=== PATIENT | female | born 1990 | race Asian ===

== ENCOUNTER 2023-10-18 13:31 | Inpatient (IN) | payer BC, SELFPAY ==
[2023-10-15 20:46] VITALS: BP 140/84
[2023-10-15 21:06] LABS: % Basophils 0.5 % (0-2); % Eosinophils 2.2 % (0-6); % Immature Granulocytes 0.3 % (0-0.5); % Lymphocytes 18.1 % (20.5-51.1); % Monocytes 5.9 % (1.7-9.3); Absolute Basophils 0.1 10^3/uL (0-0.2); Absolute Eosinophils 0.3 10^3/uL (0-0.7); Absolute Lymphocytes 2.1 10^3/uL (1.2-3.4); Absolute Monocytes 0.7 10^3/uL (0.1-0.6); Absolute Neutrophils 8.5 10^3/uL (1.4-6.5); Hematocrit 35.4 % (37.0-47.0); Hemoglobin 12.5 g/dL (12.0-16.0); Mean Corp Hgb Conc. 35.3 g/dL (33.0-37.0); Mean Corpuscular Hgb 29.9 pg (27.0-31.0); Mean Corpuscular Volume 84.7 fL (81.0-99.0); Mean Platelet Volume 10.9 fL (7.4-10.4); Nucleated Red Blood Cells % 0 %; Platelet Count 256 10^3/uL (130-400); Red Blood Cell Count 4.18 10^6/uL (4.20-5.40); Red Cell Dist. Width 12.5 % (11.5-14.5); White Blood Cell Count 11.6 10^3/uL (4.8-10.8)
[2023-10-15 21:19] LABS: ALT (SGPT) 22 U/L (0-35); AST (SGOT) 26 U/L (14-36); Albumin 4.2 g/dl (3.5-5.0); Alkaline Phosphatase 62 U/L (38-126); Blood Urea Nitrogen 9 mg/dl (7-17); Calcium 12.1 mg/dl (8.4-10.2); Carbon Dioxide 28 mmol/L (22-30); Chloride 102 mmol/L (98-107); Glucose 95 mg/dl (70-99); Potassium 3.7 mmol/L (3.5-5.1); Sodium 134 mmol/L (135-145); Total Bilirubin 0.5 mg/dl (0.2-1.3); Total Protein 7.5 g/dl (6.3-8.2); eGFR > 60.00
[2023-10-15 22:14] LABS: Urine Albumin Trace (Neg - Trace); Urine Bilirubin 2+ (Negative); Urine Character Slightly Cloudy (Clear); Urine Color Amber; Urine Glucose Negative (Negative); Urine Ketone 1+ (Negative); Urine Leukocyte 2+ (Negative); Urine Nitrite Positive (Negative); Urine Occult Blood 2+ (Negative); Urine Urobilinogen 3+ (Neg - 1+); Urine pH 6.5 (5.0-9.0)
[2023-10-15 22:37] LABS: Urine Squamous Cell >30 /LPF (Few)
[2023-10-15 22:39] LABS: Urine Calcium Oxalate Crystals Present; Urine Red Blood Cell 16-20 /HPF (0-2); Urine White Cell 26-30 /HPF (0-5)
[2023-10-15 22:40] LABS: Urine Bacteria Few (Negative); Urine Mucus Moderate
--- NOTE | 2023-10-15 22:44 | ED.GENMED ---
History of Present Illness
General
Chief Complaint: Abdominal Pain
Source: patient
Exam Limitations: none
Time Seen by Provider: 10/15/23 22:23
Travel History
Have you had any contact with someone who has COVID-19?: No
Do you have any symptoms of coronavirus? Fever > 100 degrees, chills, cough, shortness of breath, sore throat, loss of taste or smell, muscle aches, or headache?: No
History of Present Illness
History of Present Illness:
See MDM
Past History
Past History
ED Past Medical History: None
ED Past Surgical History: None
Social History
Tobacco: Non-smoker
Alcohol: None
Phy Exam
Physical Exam
Physical Exam:
See MDM
Course
Orders/Labs/Results
Orders:
Orders
10/15/23 20:59
CMP [Comprehensive Metabolic Panel] Urgent
Complete Blood Count/With Diff Urgent
HCG,SERUM [Beta HCG Quantitative] Urgent
Is this a screen?: No
10/15/23 22:03
Urinalysis Urgent
Date Specimen was Collected: 10/15/23
Time Specimen was Collected: 20:52
Urine Microscopic Urgent
Date Specimen was Collected: 10/15/23
Time Specimen was Collected: 20:52
10/15/23 22:41
CefTRIAXone [Rocephin] 1,000 mg IV NOW STA
Diphenhydramine [Benadryl] 12.5 mg IV NOW STA
Metoclopramide [Reglan] 5 mg IV NOW STA
10/15/23 22:42
US 1st Trimester Urgent
Comment:
Reason For Exam: 9 weeks , left abd pain
Abnormal Lab Results
10/15/23 10/15/23
20:59 22:03
WBC 11.6 H 10^3/uL
(4.8-10.8)
RBC 4.18 L 10^6/uL
(4.20-5.40)
Hct 35.4 L %
(37.0-47.0)
MPV 10.9 H fL
(7.4-10.4)
Absolute Neuts (auto) 8.5 H 10^3/uL
(1.4-6.5)
Absolute Monos (auto) 0.7 H 10^3/uL
(0.1-0.6)
Lymphocytes % 18.1 L %
(20.5-51.1)
Sodium 134 L mmol/L
(135-145)
Calcium 12.1 H mg/dl
(8.4-10.2)
Urine Ketones 1+ A
(Negative)
Urine Occult Blood 2+ A
(Negative)
Urine Nitrite Positive A
(Negative)
Urine Bilirubin 2+ A
(Negative)
Urine Urobilinogen 3+ A
(Neg - 1+)
Ur Leukocyte Esterase 2+ A
(Negative)
Urine RBC 16-20 A /HPF
(0-2)
Urine WBC 26-30 A /HPF
(0-5)
Urine Bacteria Few A
(Negative)
10/15/23 20:59
10/15/23 20:59
Vital Signs
Initial and Last Documented VS:
Initial Vital Signs
Temp Pulse Resp BP Pulse Ox
98.9 F 86 18 140/84 100
10/15/23 20:46 10/15/23 20:46 10/15/23 20:46 10/15/23 20:46 10/15/23 20:46
Last Documented Vital Signs
Temp Pulse Resp BP Pulse Ox
98.9 F 86 18 140/84 100
10/15/23 20:46 10/15/23 20:46 10/15/23 20:46 10/15/23 20:46 10/15/23 20:46
MDM/Problems Addressed
Differential Diagnosis Includes:
HPI and MDM Narrative:
33-year-old female presenting with persistent urinary frequency and discomfort and left flank pain. Patient is approximately 9 weeks . She is G2, P1. They state they were at an outside hospital for the same issue 1 week ago. They had an
ultrasound at that time and was told 'everything looks okay'. They finished a course of antibiotics but symptoms are persistent
On exam, she does appear comfortable but has mild left flank discomfort. There is no rash. Abdomen soft and nontender. Given the status with outpatient antibiotic failure, will start Rocephin with concern for pyelonephritis. Will
provide IV fluids. stating that patient has persistent nausea and poor appetite
Physical exam
General: Well appearing and non-toxic
HEENT: protecting airway. Mildly dry mucous membranes
Neck: appears supple
CV: No evidence of cyanosis
Resp: No accessory muscle use
Abd: Non-distended. No significant tenderness. Mild left flank tenderness
Extremities: No deformities
Neuro: alert
Psych: Normal affect
Skin: Intact
Problems Addressed including Acute and Chronic Conditions affecting care:
1. Pyelonephritis
Acuity: acute
Prognosis: unstable
Details: Patient failing outpatient antibiotics. Will start Rocephin
2. Nausea
Acuity: acute
Prognosis: stable
Details: Given her status, will avoid Zofran. Will give Reglan and Benadryl
3. Dehydration
Acuity: acute
Prognosis: stable
Details: Will give IV fluids
Differential Diagnosis (but not limited to): Pyelonephritis, UTI, hyperemesis gravidarum
Testing considered: CT abdomen pelvis but will avoid radiation given current status
Drug therapy (if applicable): OTC meds, please see d/c instruction regarding Rx drugs
Amount and/or Complexity of Data Reviewed
Clinical info obtained from: Patient and
External data reviewed: N/A
Labs I independently reviewed (but not limited to): Leukocytosis
Radiology: N/A
Pulse Ox: not hypoxic
EKG independently reviewed: N/A
Supervisor Transcribing Operators: N/A
Critical Care: N/A
Risk of Complication:
Social Determinants of health: Good social support
Discussed with other providers: Hospitalist
Escalation of Care includes Admit/Obs: After being observed in the Emergency Department, pt stable for discharge.
Occasional wrong word or 'sound a like' substitutions may have occurred due to the inherent limitations of voice recognition software. Read the chart carefully and recognize, using context, where substitutions have occurred.
*Critical Care Note
Total Time (30-74mins, 75-104mins- exclusive of procedures): Not Applicable
ED Attending Note
-
Portions of this chart may have been created with voice recognition software.� Occasional wrong word or��sound alike� substitutions may have occurred due to the inherent limitations of voice recognition software.
Discharge Plan
Departure
Patient Disposition: Admit
Date of Disposition: 10/15/23
Time of Disposition: 22:47
Admit to: Med/Surg
Presentation/result/management discussed w/ accepting MD/DO: Hospitalist
Discharge Problem:
Pyelonephritis affecting in first trimester
Referrals:
NONE,* [Family Provider] -
Interventions
Interventions:
*Risk Screen - Suicide Last Done: 10/15/23 20:46
*Neglect/Abuse Screening Last Done: 10/15/23 20:46
Discharge Date and Time
Print Language: AMERICAN
--- NOTE | 2023-10-15 22:49 | HPS.HSE ---
Addendum entered and electronically signed by Matt Chairez MD 10/16/23 00:18:
Patient seen and examined independently. Agree with findings and assessment and plan in the PRIMARY CARE SALES REPRESENTATIVE note.
Briefly, patient is a generally healthy 33 y.o female, , 9 weeks presenting to ED for persistent nausea, vomiting and urinary symptoms. She has had hyperemesis since onset of . Found to have a UTI about 9 days ago and started
on oral abx. She finished this 2 days ago and reports one day free of symptoms of left sided abominal pain, dysuria and frequency. Symptoms returned today promting return to ED. She was found to be stable. Exam was benign without flank pain.
She is afebrile and has minimal peripheral leukocytosis. U/A is positive. Possibly resistant UTI complicated by and ucx likey uniformative now.
- obs, trial of ceftriaxone with transition to oral 3rd gen cephalosporin
- supportive care with iv fluids and antiemetics
- u/s pending, if unremarkable, no indication for ob consult, has f/u appointment in 2 days
dvt ppx with scds.
full code
Original Note:
Family Physician
-
Family Physician: * NONE
Chief Complaint
-
Nausea, vomiting, dysuria
History of Present Illness
33-year-old female complaining of left-sided abdominal pain with nausea, vomiting, dysuria x 8 days. She was seen at [facility] Monday 8 days ago due to dysuria, nausea, vomiting, hematuria she was placed on a 7-day course twice daily of
unknown antibiotic and finished yesterday 10/14/2023 but still has persistent symptoms with hematuria resolved. She has had hyperemesis since 6 weeks . She was placed on Diclegis over 1 week ago with no improvement. Her states he
has been working from home lying in bed during the week due to her symptoms. She completed course of antibiotics for UTI as outpatient had a reported ultrasound as an outpatient today. She denies fever, chills, chest pain, palpitations, shortness
breath, cough, vaginal discharge, vaginal bleeding, diarrhea. She is currently 9 weeks .
PMH osteoarthritis left knee, hyperemesis.
Medical History
Past Medical History
Past Medical History: Reports Other (UTIs, 2 para 1)
Past Surgical History: Reports Tonsilectomy
Social History
Tobacco: Non-smoker
Alcohol: None
Drug: None
Personal:
Living: With Family ()
Employment: Employed
Family History
Family History: Not pertinent
Allergies / Home Medications
Allergies reflects when Allergies were last updated in [facility].
Home Medications with original date entered in [facility]
Allergy/Medication List:
Allergies
Allergy/AdvReac Type Severity Reaction Status Date / Time
No Known Allergies Allergy Verified 10/15/23 20:52
Home Medications
No Meds [No Current Medications] 10/15/23
pt reports takes diclegis prn for nausea
Review of Systems
-
History Source: Patient and Family ( at bedside)
A 12 point ROS was completed and negative except as noted: Yes
Constitutional: Denies Fever or Fatigue
EENT: Denies Sore Throat or Runny Nose
Respiratory: Denies Cough or Trouble Breathing
Cardiac: Denies Chest Pain, Diaphoresis, Palpitations or Syncope
Abdomen/GI: Reports Abdominal Pain (Left upper abdomen), Nausea and Vomiting; Denies Diarrhea, Constipated or Bloody Stools
: Reports Dysuria; Denies Frequency, Flank Pain, Incontinence, Difficulty Voiding, Urgency or Bleeding
Musculoskeletal: Denies Joint Pain or Edema
Skin: Denies Itching or Rash
Neurological: Denies Dizzy, Headache or Weakness
Endocrine: Reports No Symptoms
Hematologic/Lymphatic: Reports No Symptoms
Psych: Reports Calm
Physical Exam
Vital Signs
Vital Signs
Temp Pulse Resp BP Pulse Ox
98.9 F 86 18 140/84 100
10/15/23 20:46 10/15/23 20:46 10/15/23 20:46 10/15/23 20:46 10/15/23 20:46
Physical Exam
General: Conversant; No Fever or Chills
HEENT: NormoCephalic, Anicteric, PERRLA, [place] Conjunctivae and No Ptosis
Respiratory: Clear; No Wheezes, Rales or Rhonchi
Cardiac: S1/S2 and Regular Rhythm; No Murmur, Rub or Gallop
Breast: Deferred by me
GI: Soft, Non Distended, Normal Bowel Sounds and Tender (Left upper quadrant)
Rectal: Deferred by Provider
Genito-urinary: No costovertebral tender
Musculoskeletal: No Clubbing, No Cyanosis and No Edema
Skin: Warm and Dry; No Rash
Neuro: AO x 3, No Motor Deficits, Nonfocal/grossly intact, Cranial Nerves Intact and No Sensory Deficits; No Slurred Speech, Facial Droop or Tremors
Psych: Calm
Laboratory Results
-
10/15/23 20:59
10/15/23 20:59
Laboratory Results
Total Bilirubin 0.5 mg/dl (0.2-1.3) 10/15/23 20:59
AST 26 U/L (14-36) 10/15/23 20:59
ALT 22 U/L (0-35) 10/15/23 20:59
Alkaline Phosphatase 62 U/L (38-126) 10/15/23 20:59
Impression/Plan
-
Impression/plan:
Observation MedSurg
#Symptomatic UTI
#History of UTIs in past
Completed course of antibiotics 7-day course twice daily unclear name finished yesterday 10/14/2023
Nausea, vomiting, dysuria x 8 days
WBC 11.6, afebrile, normotensive
-positive pyuria, follow urine culture
-IV Rocephin
-IV Zofran as needed
-IV NSS
Follow CBC, BMP
# with hyperemesis starting at 6 weeks
2 para 1 prior vaginal delivery
-Currently 9 weeks
-Follows with RADIATION PROTECTION TECHNICIAN Dr. Hernandez practice has first appointment on 10/17/2023
-Currently taking Diclegis but with no improvement in nausea vomiting
DVT prophylaxis
SCDs
Full code
[2023-10-15] MEDS: NSS 1000 IV (23:00)
[2023-10-15] MEDS: REGLAN 5 MG IV (23:00)
[2023-10-15] MEDS: BENADRYL 12.5 MG IV (23:00)
[2023-10-15] MEDS: ROCEPHIN 1000 MG IV (23:01)
[2023-10-15 23:03] VITALS: BP 140/84
[2023-10-16 01:15] VITALS: BP 120/65; BMI 24.6
[2023-10-16] MEDS: NSS 1000 IV ×3 (01:24→21:51)
--- NOTE | 2023-10-16 02:16 | PTCARENOTE ---
Pt admitted to the unit from ED. Pt ambulated self to bed with nursing staff. AAXO3. Pt reports 4 to 5/10 LUQ pain. Pt refused PRN Tylenol. Pt oriented to room with call lin in reach. Plan of care ongoing.
[2023-10-16] MEDS: TYLENOL 650 MG PO ×3 (04:50→22:10)
[2023-10-16 07:19] LABS: Hematocrit 30.2 % (37.0-47.0); Hemoglobin 10.4 g/dL (12.0-16.0); Mean Corp Hgb Conc. 34.4 g/dL (33.0-37.0); Mean Corpuscular Hgb 30.2 pg (27.0-31.0); Mean Corpuscular Volume 87.8 fL (81.0-99.0); Mean Platelet Volume 11.5 fL (7.4-10.4); Platelet Count 201 10^3/uL (130-400); Red Blood Cell Count 3.44 10^6/uL (4.20-5.40); Red Cell Dist. Width 12.4 % (11.5-14.5); White Blood Cell Count 9.8 10^3/uL (4.8-10.8)
[2023-10-16 07:46] LABS: Blood Urea Nitrogen 7 mg/dl (7-17); Calcium 10.9 mg/dl (8.4-10.2); Carbon Dioxide 23 mmol/L (22-30); Chloride 105 mmol/L (98-107); Estimated Creatinine Clearance 87 ml/min; Glucose 91 mg/dl (70-99); Magnesium 1.8 mg/dl (1.6-2.3); Sodium 134 mmol/L (135-145); eGFR > 60.00
[2023-10-16 07:56] VITALS: BP 113/70
--- NOTE | 2023-10-16 13:01 | CM ---
Patient seen bedside with spouse.
IA completed.
Patient lives with spouse 2 story home.
Independent prior to admission.
Patient does not drive.
No assistive devices, no VN.
Provided information re PCPs in the area and family requested [employer] OVERHEAD CLEANER, number provided.
PCP: None
Pharmacy: [facility].
Plan:home no needs.
[2023-10-16 15:37] VITALS: BP 126/72
--- NOTE | 2023-10-16 16:00 | W.PN.HOSP.TC ---
Today's Communication/Plan
-
Renal ultrasound
Continue ceftriaxone
Follow culture data
Consult ID
Consult OB
Assessment / Plan
Assessment / Plan
#Symptomatic UTI with concerns for left pyelonephritis clinically
#History of UTIs in past
# Hx of nephrolithiasis-was symptomatic in August with left-sided kidney stones
Completed course of antibiotics 7-day course twice daily , finished yesterday 10/14/2023. showed me bottles of her nitrofurantoin and doxycycline
Nausea, vomiting, dysuria x 8 days
WBC 11.6, afebrile, normotensive
-positive pyuria, follow urine culture
-cw IV Rocephin
-cw IV Zofran as needed
-cw IV NSS
- consult ID
- Check US renal tract to rule out kidney stones
# with hyperemesis starting at 6 weeks
2 para 1 prior vaginal delivery
-Currently 9 weeks
-Follows with DIVERSIFIED CROPS SUPERVISOR Dr. Hernandez practice has first appointment on 10/17/2023
-OB US shows subchorionic hemorrhage-pt declines vaginal bleeding.
Consult OB
DVT prophylaxis
SCDs
Discussed with at bedside
Total time spent on today's encounter was 52 minutes which included time spent in counseling the patient regarding diagnosis and treatment plan as listed above, goals of care, and symptom management. Case was discussed with nursing staff,
specialists . All labs and imaging personally reviewed by me. Remainder the time spent in detailed review of previous records, lab data, imaging, and other medical provider documentation.
Anticipated Discharge: > 48 hours
Subjective/Interval History
-
Date of Service: October 16, 2023
Patient still feeling nauseous and has ongoing left-sided flank pain.
In August to see how she had a kidney stones on the left side which was treated conservatively. She can see a urologist. Her care was in [facility]. She has prior history of kidney stones 2.
55 she was having lower urinary tract symptoms of dysuria but for a day and then she started to have increased frequency and change in color of urine. She then developed left-sided flank pain. She was feeling nauseous and she was throwing up. She
went to [facility] and got evaluated in the ED and had apparently ultrasound of the kidneys which was reported to be normal and had a urine analysis was put on nitrofurantoin and doxycycline( showed me the pictures of these abx on his
phone)
She remains symptomatic so came to the ER.
Denies any fevers currently.
Objective Data
-
Labs:
Laboratory Results
10/16/23
06:54
WBC 9.8
Hgb 10.4 L
Hct 30.2 L
Plt Count 201 D
Sodium 134 L
Potassium 4.0
Chloride 105
Carbon Dioxide 23
BUN 7
Creatinine 0.8
Glucose 91
Calcium 10.9 H
Vital Signs:
Vital Signs
Temp Pulse Resp BP Pulse Ox
97.6 F 73 16 126/72 99
10/16/23 15:37 10/16/23 15:37 10/16/23 15:37 10/16/23 15:37 10/16/23 15:37
I&O
10/15/23 10/16/23 10/17/23
06:59 06:59 06:59
Intake Total 60 / 60
Balance 60 / 60
Review of Systems
-
Constitutional: Denies Fever
EENT: Denies Sore Throat
Respiratory: Denies Cough or Trouble Breathing
Cardiac: Denies Chest Pain
Neuro: Denies Dizzy or Headache
Physical Exam
-
General: No Apparent Distress
HEENT: Moist Mucous Membranes
Respiratory: Clear to Auscultation
Cardiac: Regular Rhythm and S1/S2
GI: Soft, Nondistended, Normal Bowel Sounds and Tender (left side of abdomen)
Genito-urinary: Costovertebral Angle Tend (left side)
Neuro: AO x 3
Psych: Calm
Data Reviewed
-
Labs: Labs Reviewed by me
[2023-10-16 16:26] VITALS: BMI 24.6
[2023-10-16] MEDS: ZOFRAN 4 MG IV (17:25)
--- NOTE | 2023-10-16 17:27 | CON.ID ---
Consultation
-
Date/Time Consultation Requested: 10/16/2023 1451
Date/Time Consultation Performed: 10/16/2023 1731
Requesting Provider: Dr. Tomas
Performing Provider: Dr. Still
Reason for Consultation: Complicated urinary tract infection
Chief Complaint / Past History
History of Present Illness
Beth Lopez is a 33-year-old female being evaluated at the request of Dr. Tomas in regards to a complicated urinary tract infection. History is obtained from chart review, along with patient interview, and history obtained from the patient's
who is at the bedside. The patient was in her usual state of health until approximately 10 days ago when she developed nausea, vomiting and dysuria. After 3 days of symptomatology she presented to the ER at [facility]. An
ultrasound was reportedly done which was 'normal' and the patient was discharged on a course of antibiotics (Macrobid) and doxylamine/pyridoxine. The patient completed a 7-day course of the Macrobid, but at this point in time continues to have
ongoing left flank discomfort which was reportedly 9/10 yesterday.
Currently she reports her pain is 6/10. She is not having any current dysuria nor has had any hematuria. She denies any fevers, but is having nausea and vomiting. She notes no diarrhea. She does have a history of nephrolithiasis.
Past History
Additional Past Medical History:
Nephrolithiasis
Additional Past Surgical History:
Tonsils
Allergy History:
No Known Allergies Allergy (Verified 10/15/23 20:52)
Medications Reviewed: Yes
Current Antibiotics:
Ceftriaxone
Social History
Tobacco: Non-Smoker
Alcohol: None
Drug: None
Personal:
Living: With Family
Employment: Employed
Family History
Family History: Not Pertinent
Review of Systems
Vital Signs
Temp Pulse Resp BP Pulse Ox
97.6 F 73 16 126/72 99
10/16/23 15:37 10/16/23 15:37 10/16/23 15:37 10/16/23 15:37 10/16/23 15:37
Physical Exam
Physical Exam
Constitutional: No Acute Distress, Comfortable and Non-toxic
Head: Normocephalic
Eyes: Pupils Equal, Pupils Round, No Conjunctival Hemorrhage and Sclera Anicteric
Oral: No Thrush and No Ulcers
Cardiovascular: Regular Rate and S1/S2; Negative S3/S4 or Murmur
Pulmonary: Clear; Negative Wheezes, Rales or Rhonchi
Gastrointestinal: Non Tender, Non Distended and Normal Bowel Sounds
Genito-Urinary: CVA Tenderness (left); Negative [place]
Extremities: Negative Edema, Cyanosis or Erythema
Skin: Warm and Dry; Negative Rash or Jaundice
Neurological: Awake, Alert and Oriented
Psychological: Calm
Lab / Diagnostic Study Results
10/16/23 06:54
10/16/23 06:54
Abs Immat Gran (auto) 0.0 10^3/uL (0-0.05) 10/15/23 20:59
Absolute Neuts (auto) 8.5 10^3/uL (1.4-6.5) H 10/15/23 20:59
Absolute Lymphs (auto) 2.1 10^3/uL (1.2-3.4) 10/15/23 20:59
Absolute Monos (auto) 0.7 10^3/uL (0.1-0.6) H 10/15/23 20:59
Absolute Basos (auto) 0.1 10^3/uL (0-0.2) 10/15/23 20:59
Immature Gran % 0.3 % (0-0.5) 10/15/23 20:59
Neutrophils % 73.0 % (42.2-75.2) 10/15/23 20:59
Lymphocytes % 18.1 % (20.5-51.1) L 10/15/23 20:59
Monocytes % 5.9 % (1.7-9.3) 10/15/23 20:59
Eosinophils % 2.2 % (0-6) 10/15/23 20:59
Basophils % 0.5 % (0-2) 10/15/23 20:59
Urine WBC 26-30 /HPF (0-5) A 10/15/23 22:03
Ur Squamous Epith Cells >30 /LPF (Few) 10/15/23 22:03
Assessment / Plan
Left flank pain
Leukocytosis
Suspected left pyelonephritis versus left hydronephrosis
9 weeks
Recommendations:
Continue with ceftriaxone.
Await renal ultrasound.
Await cultures.
Obtain records from [facility] ER visit
Care Review
Plan reviewed with: Physician (Hospitalist)
[2023-10-16] MEDS: SENOKOT-S 1 TABLET PO (17:31)
--- NOTE | 2023-10-16 17:34 | PTCARENOTE ---
Patient received IV Zofran for c/o nausea, also requested senna tab for c/o constipation- no bm for 2 days, today being the third. at bedside at present. No c/o pain at present.
[2023-10-16] MEDS: ROCEPHIN 1000 MG IV (22:10)
[2023-10-16] MEDS: STERILE WATER FOR INJECTION 10 ML IV (22:11)
--- NOTE | 2023-10-16 23:31 | CON.MD ---
Consultation - Medical
-
Pt seen earlier today-late entry note
33 yo LMP 08/16 (sometimes irregular cycles) EGA 8w4d by dating US 10/15/23 was admitted to hospital for nonresolving UTI/possible concern for pyelonephritis. Reports UTI sx for approx 1 wk. Was admitted due to nonresolving UTI and concern for
possible pyelo. and had scheduled appt with [facility] in [place] but has not been seen there yet. Had appt tomorrow which she plans to cancel since still in hospital. She wants to deliver at [facility] so I explained that she
should consider making appt at my office since we are the only practice delivering here. [place] practice does not deliver here.
ROS: + urinary frequency/urgency/left flank pain.+ nausea and decreased appetite. Negative for vaginal bleeding or pelvic cramping.
PMH: neg
PSH: tonsillectomy
NKDA
Meds: none
Sochx: , neg T/E/ drug use
Famhx; noncontributory
PE: VSS
NDNT
pelvic exam deferred
Pelvic US: : IUP 8w3d with subchorionic collection 2 cm x 0.3cm. Small fibroid 1.6 cm.
REnal US: mild/moderate left hydroureteronephrosis, obstructing calculus at left UPJ
A/P:
1. [id number] to establish OB care. Gave her phone # to my office. She would like to see [facility] and deliver at .
2. Subchorionic hemorrhage-no vaginal bleeding. Need to check blood type.
3. Fibroid-small and likely insignificant. Will monitor.
4. nonresolving UTI/pyelonephritis-continue with IV abx. Do not see urine culture was sent. Ordered culture from urine in lab.
5. renal calculus- mild to mod hydro from obstructing stone Left UVJ-recommend urology consult.
[2023-10-16 23:36] VITALS: BP 127/78
[2023-10-17] VITALS (12 sets, daily range): BP systolic 117–130; BP diastolic 66–88
[2023-10-17] MEDS: NSS 1000 IV (05:21)
[2023-10-17] MEDS: ZOFRAN 4 MG IV ×3 (06:06→17:46)
[2023-10-17] MEDS: TYLENOL 650 MG PO ×3 (08:08→23:08)
--- NOTE | 2023-10-17 08:45 | W.PN.URO.CBU ---
Today's Communication / Plan
-
Discussed case with Dr. Nicolas and patient/
Patient has been ill for over a week; has lost 8 pounds
She has previously passed kidney stones, but the size of this left ureteral stone makes passage unlikely
Patient has been counseled regarding the risk to her if she has surgery, and if she does not
Discussed alternatives to ureteroscopy, namely left PCN tube, which would need to remain in place until at least the 3rd trimester and which would not necessarily obviate the need for radiation
Patient and are aware of the risk of worsening infection, left ureteral injury, complication to the , spontaneous , radiation injury to baby
Written and verbal consent provided
---
Will proceed to OR today
Assessment / Plan
-
Large, obstructing left distal ureteral stone
Left renal colic
Intractable nausea with vomiting
Possible complicated UTI
Diagnosis
-
Date of Service: October 17, 2023
-
Patient Diagnosis:
Left UVJ stone
Left hydroureteronephrosis
Left renal colic
Intractable nausea
Possible complicated UTI
8 week intrauterine
Subjective
-
Feels miserable
LLQ discomfort
Nausea
Fatigue
Objective
-
Vital Signs
Temp Pulse Resp BP Pulse Ox
98.8 F 75 16 119/81 99
10/17/23 07:46 10/17/23 07:46 10/17/23 07:46 10/17/23 07:46 10/17/23 07:46
Intake and Output
10/16/23 10/17/23 10/18/23
06:59 06:59 06:59
Intake Total 60 / 60 2880 / 2880
Balance 60 / 60 2880 / 2880
Intake:
Oral fluids 60 / 60 1680 / 1680
IV fluids (Total) 1200 / 1200
Other:
Number of approximated MODERATE 1 2
amounts of urine
Laboratory Results
10/16/23 06:54
10/16/23 06:54
Review of Systems
-
Constitutional: Fatigue
Respiratory: No Symptoms
Cardiac: No Symptoms
Abdomen/GI: Nausea and Vomiting
: No Symptoms
Neurological: No Symptoms
Physical Exam
-
General - ill-appearing, no acute distress
Abdomen - soft, LLQ discomfort
Skin - warm & dry with no rash
Neuro - AOx3, no motor deficits
--- NOTE | 2023-10-17 11:05 | PTCARENOTE ---
Patient kept NPO for OR this am, did receive tylenol for c/o headache with sip of water. Report called to OR.
--- NOTE | 2023-10-17 11:31 | W.IMMPOSTOP ---
Surgical Immed Post Op Note
-
Primary Surgeon: Jairon
Assisting Surgeon: None
Pre-op Diagnosis: Left ureteral stone, left hydroureteronephrosis, left renal colic, 8 week intrauterine , intractable nause
Post-op Diagnosis: Same
Procedure Performed: Left ureteroscopic laser lithotripsy, stone extraction, stent placement (no fluoroscopy employed)
Anesthesia Type: GET
Specimen / Cultures: Stone fragments
Estimated Blood Loss: None
Complications: None
--- NOTE | 2023-10-17 11:44 | CM ---
OR today for ureteral stone.
Plan: home no needs.
--- NOTE | 2023-10-17 12:47 | W.PN.HOSP.TC ---
Today's Communication/Plan
-
Start on diet post procedure
Continue antibiotics
Follow blood culture data
Assessment / Plan
Assessment / Plan
#Symptomatic UTI with concerns for left pyelonephritis clinically
#History of UTIs in past
# Hx of nephrolithiasis-was symptomatic in August with left-sided kidney stones
# Recurrent nephrolithiasis-currently having left pelvic ureteral junction obstructing stone with hydronephrosis
Completed course of antibiotics 7-day course twice daily , finished yesterday 10/14/2023. showed me bottles of her nitrofurantoin and doxycycline
S/p ureteroscopy, lithotripsy , stone removal, and stent placement in the left ureter.
Resume diet.
Continue antibiotics
Follow urine culture data
# 8W+3d +_ 1 week per US
Small subchorionic hemorrhage
No vaginal bleeding
2 para 1 prior vaginal delivery
Appreciate OB input-follow as an outpatient
DVT prophylaxis
SCDs
Discussed with this morning
[facility] today post procedure
Anticipated Discharge: 24 - 48 hours
Subjective/Interval History
-
Date of Service: October 17, 2023
Seen in PACU
S/p ureteroscopy , lithotripsy of the stone and left ureteral stent placement.
Feels the left flank pain is better. Feeling little nauseous but no vomiting. No fever or chills.
No vaginal bleeding.
Objective Data
-
Vital Signs:
Vital Signs
Temp Pulse Resp BP Pulse Ox
97.0 F 60 11 130/88 100
10/17/23 11:55 10/17/23 12:15 10/17/23 12:15 10/17/23 12:15 10/17/23 12:15
I&O
10/16/23 10/17/23 10/18/23
06:59 06:59 06:59
Intake Total 60 / 60 2880 / 2880 200 / 200
Balance 2880 / 2880 200 / 200
Review of Systems
-
Constitutional: Denies Fever
EENT: Denies Sore Throat
Respiratory: Denies Trouble Breathing
Cardiac: Denies Chest Pain
Physical Exam
-
General: No Apparent Distress
HEENT: Moist Mucous Membranes
Respiratory: Clear to Auscultation
Cardiac: Regular Rhythm and S1/S2
GI: Soft and Nontender
Genito-urinary: No Costovertebral Tender
Neuro: AO x 3
Psych: Calm
Data Reviewed
-
Labs: Labs Reviewed by me
--- NOTE | 2023-10-17 12:49 | PTCARENOTE ---
Received patient from PACU in bed; Patient oriented to room and unit; Patient ambulated to bathroom, voided 800mL of blood tinged urine; Call lin within reach; Bed in lowest position wheels locked; Patient spouse at bedside; Assessment ongoing
--- NOTE | 2023-10-17 14:59 | W.PN.UPDATE ---
Update Note
Progress Note Update
Pt s/p urology procedure, is resting comfortably, in room. No vaginal bleeding. Advised pt that U/S ordered to reassure pt post-procedure. Information given to to make appointment with our office for PN care upon discharge.
--- NOTE | 2023-10-17 16:39 | W.PN.ID1 ---
Date of Service
Date of Service: October 17, 2023
Today's Communication
Narrow to cefdinir for an additional 10 days.
Assessment / Plan
Left flank pain
Leukocytosis
Left pyelonephritis
Left hydronephrosis secondary to obstructive uropathy.
9 weeks
Recommendations:
Given overall improvement, narrow to oral cefdinir.
Patient S/P stone retriev
Outside records reviewed. Does not appear that the urine culture was performed at OSH.
Chief Complaint
-: UTI
Subjective / Review of Systems
Review of Systems: No Fever and No Chills
Vital Signs / Physical Exam
Vital Signs
Vital Signs
Temp Pulse Resp BP Pulse Ox
98.2 F 56 14 119/66 100
10/17/23 16:02 10/17/23 16:02 10/17/23 16:02 10/17/23 16:02 10/17/23 16:02
Physical Exam
Constitutional: No Acute Distress, Well Developed, Comfortable and Non-toxic
Eyes: Sclera Anicteric
Cardiovascular: S1/S2; Negative S3/S4
Pulmonary: Clear and Non Labored
Gastrointestinal: Soft and Non Distended
Objective Data
Lab Data
Lab Results
10/16/23 06:54
10/16/23 06:54
Estimated Creat Clear 87 ml/min 10/16/23 06:54
Total Bilirubin 0.5 mg/dl (0.2-1.3) 10/15/23 20:59
AST 26 U/L (14-36) 10/15/23 20:59
ALT 22 U/L (0-35) 10/15/23 20:59
Alkaline Phosphatase 62 U/L (38-126) 10/15/23 20:59
Most recent labs reviewed.
[2023-10-17] MEDS: OMNICEF 300 MG PO (19:58)
[2023-10-17] MEDS: STERILE WATER FOR INJECTION IV (21:55)
[2023-10-18 03:00] VITALS: BP 122/66
--- NOTE | 2023-10-18 05:28 | DOWNTIME ---
There was a [employer] Human Resources Clerk Downtime on 10/18/2023 from 0100 to 10/18/2023 at 0439. Downtime documentation of patient's care, including medication administrations, has been reconciled in the electronic record per guidelines. Refer to the
patient's paper chart under the miscellaneous tab to see printed paper medication records and downtime forms.
[2023-10-18 05:39] LABS: Hematocrit 28.2 % (37.0-47.0); Mean Corp Hgb Conc. 35.5 g/dL (33.0-37.0); Mean Corpuscular Hgb 30.4 pg (27.0-31.0); Mean Corpuscular Volume 85.7 fL (81.0-99.0); Mean Platelet Volume 11.6 fL (7.4-10.4); Platelet Count 217 10^3/uL (130-400); Red Blood Cell Count 3.29 10^6/uL (4.20-5.40); Red Cell Dist. Width 12.4 % (11.5-14.5); White Blood Cell Count 10.4 10^3/uL (4.8-10.8)
[2023-10-18 06:08] LABS: Blood Urea Nitrogen 8 mg/dl (7-17); Calcium 11.7 mg/dl (8.4-10.2); Carbon Dioxide 21 mmol/L (22-30); Chloride 102 mmol/L (98-107); Estimated Creatinine Clearance 116 ml/min; Glucose 76 mg/dl (70-99); Potassium 3.5 mmol/L (3.5-5.1); Sodium 133 mmol/L (135-145); eGFR > 60.00
[2023-10-18 07:15] VITALS: BP 124/79
[2023-10-18] MEDS: OMNICEF 300 MG PO (08:37)
[2023-10-18] MEDS: ZOFRAN 4 MG IV (08:41)
--- NOTE | 2023-10-18 09:43 | W.PN.HOSP.TC ---
Today's Communication/Plan
-
DC
Assessment / Plan
Assessment / Plan
#Symptomatic UTI with concerns for left pyelonephritis clinically
#History of UTIs in past
# Hx of nephrolithiasis-was symptomatic in August with left-sided kidney stones
# Recurrent nephrolithiasis-currently having left pelvic ureteral junction obstructing stone with hydronephrosis
Completed course of antibiotics 7-day course twice daily , finished yesterday 10/14/2023. showed me bottles of her nitrofurantoin ; not doxycycline lik i thought ,it was doxylamine
S/p ureteroscopy, lithotripsy , stone removal, and stent placement in the left ureter.
Resumed diet.
Continue antibiotics per ID -switched to oral
# Nausea - improved urinary symptoms and resolved left flank pain .Left with nausea which i suspect sec to her . cw symptomatic tx.
# 8W+3d +_ 1 week per US
Small subchorionic hemorrhage; on repeat OB US 10/16 less conspicious
No vaginal bleeding
2 para 1 prior vaginal delivery
Appreciate OB input-follow as an outpatient
Medically stable for DC today
More than 30 minutes spent in discharge including
Final examination of the patient
Summarizing hospital stay
Instructions for continuing care to all relevant caregivers
Preparation of discharge records, prescriptions, and referral forms
Total time spent (in minutes): 32
Anticipated Discharge: Today
Subjective/Interval History
-
Date of Service: October 18, 2023
Pt is now left with nausea. She has been experiencing nausea with ;also had nause in her first trimester.
Left flank pain has resolved.
No frequency of urine . some dysuria .
No fever or chills.
No vaginal bleeding.
Objective Data
-
Labs:
Laboratory Results
10/18/23
05:20
WBC 10.4
Hgb 10.0 L
Hct 28.2 L
Plt Count 217
Sodium 133 L
Potassium 3.5
Chloride 102
Carbon Dioxide 21 L
BUN 8
Creatinine 0.6
Glucose 76
Calcium 11.7 H
Vital Signs:
Vital Signs
Temp Pulse Resp BP Pulse Ox
97.7 F 94 17 124/79 97
10/18/23 07:15 10/18/23 07:15 10/18/23 07:15 10/18/23 07:15 10/18/23 07:15
I&O
10/17/23 10/18/23 10/19/23
06:59 06:59 06:59
Intake Total 2880 / 2880 200 / 200
Output Total 1500 / 1500
Balance 2880 / 2880 -1300 / -1300
Review of Systems
-
Constitutional: Denies Fever or Chills
EENT: Denies Sore Throat
Respiratory: Denies Cough or Trouble Breathing
Cardiac: Denies Chest Pain
Neuro: Denies Dizzy
Physical Exam
-
General: No Apparent Distress
HEENT: Moist Mucous Membranes
Respiratory: Clear to Auscultation
Cardiac: Regular Rhythm and S1/S2; Negative Tachycardic
GI: Soft, Nontender, Nondistended and Normal Bowel Sounds
Genito-urinary: No Costovertebral Tender
Neuro: AO x 3
Data Reviewed
-
Labs: Labs Reviewed by me
--- NOTE | 2023-10-18 09:55 | W.DS.TRANS ---
DC Summary - [facility]
-
Discharge Instructions:
Discharge Diagnosis/Procedures Obstructing left ureteral stone status post
lithotripsy, stone extraction and stent
placement. Possible left pyelonephritis
Diet Regular
Activity As tolerated
Driving Restrictions As prior to admission
Instructions:
Stand-Alone Forms:
Changes to Home Medications: Yes
Discharge Medications:
DC Medications w/original date entered in [employer]
cefdinir 300 mg capsule 300 mg PO Q12 #18 caps 10/18/23
pyridoxine (vitamin B6) 10 mg tablet 10 mg PO DAILY #30 tabs 10/18/23
Home Medication Changes
New meds - both of above
Pending Results: No
[2023-10-18] MEDS: SENOKOT-S 1 TABLET PO (10:52)
--- NOTE | 2023-10-18 11:12 | W.PN.URO.CBU ---
Today's Communication / Plan
-
Cleared for discharge from standpoint
Stent removal early next week
Assessment / Plan
-
Large, obstructing left distal ureteral stone
Left renal colic
Intractable nausea with vomiting
Possible complicated UTI
---
s/p left ureteroscopic stone extraction and stent placement 10/17/23
Diagnosis
-
Date of Service: October 18, 2023
-
Patient Diagnosis:
Post Op Day:
Patient Diagnosis:
Left UVJ stone
Left hydroureteronephrosis
Left renal colic
Intractable nausea
Possible complicated UTI
8 week intrauterine
---
s/p left ureteroscopic laser lithotripsy with stone extraction and JJ stent removal 10/17/23
Subjective
-
Much diminished left flank pain
Modest dysuria
Resolved gross hematuria
Objective
-
Vital Signs
Temp Pulse Resp BP Pulse Ox
97.7 F 94 17 124/79 97
10/18/23 07:15 10/18/23 07:15 10/18/23 07:15 10/18/23 07:15 10/18/23 07:15
Intake and Output
10/17/23 10/18/23 10/19/23
06:59 06:59 06:59
Intake Total 2880 / 2880 200 / 200
Output Total 1500 / 1500
Balance 2880 / 2880 -1300 / -1300
Intake:
Oral fluids 1680 / 1680
IV fluids (Total) 1200 / 1200 200 / 200
Normosol 200 / 200
Output:
Urine, Voided 1500 / 1500
Other:
Number of approximated MODERATE 2
amounts of urine
Laboratory Results
10/18/23 05:20
10/18/23 05:20
Review of Systems
-
Constitutional: No Symptoms
Respiratory: No Symptoms
Cardiac: No Symptoms
Abdomen/GI: Abdominal Pain and Nausea
Neurological: No Symptoms
Physical Exam
-
General - well developed, well nourished, no acute distress
Abdomen - soft
[2023-10-18 11:42] VITALS: BP 127/78
--- NOTE | 2023-10-18 11:57 | W.PN.ID1 ---
Date of Service
Date of Service: October 18, 2023
Today's Communication
Continue antibiotics.
Assessment / Plan
Left flank pain
Leukocytosis
Left pyelonephritis
Left hydronephrosis secondary to obstructive uropathy.
9 weeks
Recommendations:
Outside records reviewed. Does not appear that the urine culture was performed at OSH.
Patient S/P stone retrieval
Continue with oral cefdinir.
Chief Complaint
-: UTI
Subjective / Review of Systems
Review of Systems: No Fever and Nausea
Vital Signs / Physical Exam
Vital Signs
Vital Signs
Temp Pulse Resp BP Pulse Ox
97.6 F 57 18 127/78 97
10/18/23 11:42 10/18/23 11:42 10/18/23 11:42 10/18/23 11:42 10/18/23 11:42
Physical Exam
Constitutional: No Acute Distress, Well Developed, Comfortable and Non-toxic
Head: Normocephalic
Eyes: Sclera Anicteric
Cardiovascular: S1/S2; Negative S3/S4
Pulmonary: Non Labored
Gastrointestinal: Soft, Non Distended and Normal Bowel Sounds
Neurological: Awake and Alert
Objective Data
Lab Data
Lab Results
10/18/23 05:20
10/18/23 05:20
Estimated Creat Clear 116 ml/min 10/18/23 05:20
Total Bilirubin 0.5 mg/dl (0.2-1.3) 10/15/23 20:59
AST 26 U/L (14-36) 10/15/23 20:59
ALT 22 U/L (0-35) 10/15/23 20:59
Alkaline Phosphatase 62 U/L (38-126) 10/15/23 20:59
Most recent labs reviewed.
--- NOTE | 2023-10-18 12:30 | SUR.OPER ---
Patient discharged by another RN.
[2023-10-23 00:33] LABS: Stone Analysis Mass 17 mg
== END 2023-10-18 13:43 | disposition home or self-care (01) | DRG 818 ==
LOC: 2 SOUTH 13:31
PROVIDERS: ADMITTING PHYSICIAN Internal Medicine; ATTENDING PHYSICIAN Internal Medicine; CONSULT PHYSICIAN Internal Medicine Infectious Disease; CONSULT PHYSICIAN Obstetrics & Gynecology; CONSULT PHYSICIAN Specialist; EMERGENCY PHYSICIAN Student in an Organized Health Care Education/Training Program
PROC: 0T778DZ Dilation of Left Ureter with Intraluminal Device, Via Natural or Artificial Opening Endoscopic (ICD-10-PCS; 2023-10-17)
PROC: 0TC78ZZ Extirpation of Matter from Left Ureter, Via Natural or Artificial Opening Endoscopic (ICD-10-PCS; 2023-10-17)
DX: O23.01 Infections of kidney in pregnancy, first trimester (principal); N20.2 Calculus of kidney with calculus of ureter; O26.831 Pregnancy related renal disease, first trimester; O99.281 Endocrine, nutritional and metabolic diseases complicating pregnancy, first trimester; O21.0 Mild hyperemesis gravidarum; Z3A.09 9 weeks gestation of pregnancy
CPT/HCPCS: 76770; 76801; 76816; 80048; 80053; 81003; 81015; 82365; 83735; 84702; 85025; 85027; 86850; 86900; 86901; 96361; 96374; 96375; 99285; C2617

== ENCOUNTER → 2023-10-31 13:25 | Outpatient (REF) | payer BC, SELFPAY | LOC: RAD 13:25 | PROVIDERS: ATTENDING PHYSICIAN Obstetrics & Gynecology | DX: O36.8390 Maternal care for abnormalities of the fetal heart rate or rhythm, unspecified trimester, not applicable or unspecified (principal) | CPT/HCPCS: 76801 ==

== ENCOUNTER → 2023-11-13 11:37 | Outpatient (REF) | payer BC, SELFPAY | LOC: PNTC 11:37 | PROVIDERS: ATTENDING PHYSICIAN Obstetrics & Gynecology | DX: Z36.0 Encounter for antenatal screening for chromosomal anomalies (principal); Z36.82 Encounter for antenatal screening for nuchal translucency | CPT/HCPCS: 76801; 76813 ==

== ENCOUNTER → 2024-01-08 13:28 | Outpatient (REF) | payer BC, SELFPAY | LOC: PNTC 13:28 | PROVIDERS: ATTENDING PHYSICIAN Obstetrics & Gynecology | DX: Z34.82 Encounter for supervision of other normal pregnancy, second trimester (principal) | CPT/HCPCS: 76805 ==

== ENCOUNTER 2024-05-08 15:53 | Inpatient (IN) | payer BC, SELFPAY ==
[2024-05-08 15:29] VITALS: BMI 29.2
[2024-05-08 15:49] LABS: Protein/creatinine Ratio 0.9; Urine Protein 18 mg/dl
[2024-05-08 15:57] LABS: % Basophils 0.5 % (0-2); % Eosinophils 0.7 % (0-6); % Immature Granulocytes 0.8 % (0-0.5); % Lymphocytes 19.3 % (20.5-51.1); % Monocytes 7.3 % (1.7-9.3); % Neutrophils 71.4 % (42.2-75.2); Absolute Basophils 0.1 10^3/uL (0-0.2); Absolute Eosinophils 0.1 10^3/uL (0-0.7); Absolute Immature Granulocytes 0.1 10^3/uL (0-0.05); Absolute Lymphocytes 1.8 10^3/uL (1.2-3.4); Absolute Monocytes 0.7 10^3/uL (0.1-0.6); Absolute Neutrophils 6.8 10^3/uL (1.4-6.5); Hematocrit 33.8 % (37.0-47.0); Hemoglobin 11.7 g/dL (12.0-16.0); Mean Corp Hgb Conc. 34.6 g/dL (33.0-37.0); Mean Corpuscular Volume 89.7 fL (81.0-99.0); Mean Platelet Volume 10.7 fL (7.4-10.4); Nucleated Red Blood Cells % 0 %; Platelet Count 203 10^3/uL (130-400); Red Blood Cell Count 3.77 10^6/uL (4.20-5.40); Red Cell Dist. Width 14.6 % (11.5-14.5); White Blood Cell Count 9.5 10^3/uL (4.8-10.8)
[2024-05-08 15:59] VITALS: BP 176/87
[2024-05-08 16:10] LABS: ALT (SGPT) 14 U/L (0-35); AST (SGOT) 21 U/L (14-36); Albumin 3.6 g/dl (3.5-5.0); Alkaline Phosphatase 141 U/L (38-126); Blood Urea Nitrogen 7 mg/dl (7-17); Calcium 12.2 mg/dl (8.4-10.2); Carbon Dioxide 22 mmol/L (22-30); Chloride 102 mmol/L (98-107); Estimated Creatinine Clearance > 125 ml/min; Glucose 77 mg/dl (70-99); Potassium 4.2 mmol/L (3.5-5.1); Sodium 134 mmol/L (135-145); Total Bilirubin 0.4 mg/dl (0.2-1.3); Total Protein 6.5 g/dl (6.3-8.2); eGFR > 60.00
[2024-05-08] MEDS: TRANDATE 20 MG IV (16:47)
[2024-05-08] MEDS: LR 1000 IV (16:47)
[2024-05-08] MEDS: MAGNESIUM SULFATE 100 IV (16:47)
[2024-05-08] MEDS: MAGNESIUM SULFATE 40 GRAM 1000 IV (17:13)
[2024-05-08] MEDS: PENICILLIN 110 UNITS IV (17:19)
[2024-05-08] MEDS: TYLENOL 1000 MG PO (18:24)
[2024-05-08] MEDS: PITOCIN 30 UNITS/NSS 500 ML IV (18:25)
[2024-05-08] MEDS: FENTANYL/BUPIVACAINE 100 EPIDURAL (20:06)
[2024-05-08] MEDS: SUBLIMAZE 100 MCG EPIDURAL (20:06)
[2024-05-08] MEDS: PENICILLIN 55 UNITS IV (21:00)
[2024-05-09 00:01] LABS: Magnesium 5.8 mg/dl (1.6-2.3)
[2024-05-09] MEDS: MOTRIN 600 MG PO ×3 (01:19→18:59)
[2024-05-09 05:42] LABS: Hematocrit 30.1 % (37.0-47.0); Hemoglobin 10.5 g/dL (12.0-16.0); Mean Corp Hgb Conc. 34.9 g/dL (33.0-37.0); Mean Corpuscular Volume 91.8 fL (81.0-99.0); Mean Platelet Volume 11.3 fL (7.4-10.4); Platelet Count 172 10^3/uL (130-400); Red Blood Cell Count 3.28 10^6/uL (4.20-5.40); Red Cell Dist. Width 14.4 % (11.5-14.5); White Blood Cell Count 13.3 10^3/uL (4.8-10.8)
[2024-05-09 05:47] LABS: Magnesium 6.2 mg/dl (1.6-2.3)
[2024-05-09] MEDS: PRENATAL PLUS 1 TABLET PO (09:44)
[2024-05-09] MEDS: LR 1000 IV (09:45)
[2024-05-09] MEDS: REGLAN 10 MG IV (11:45)
[2024-05-09] MEDS: MAGNESIUM SULFATE 40 GRAM 1000 IV (12:51)
[2024-05-10] MEDS: MOTRIN 600 MG PO ×2 (02:23→20:40)
[2024-05-10] MEDS: PRENATAL PLUS 1 TABLET PO (08:34)
[2024-05-10] MEDS: SENOKOT-S 1 TABLET PO ×2 (08:50→22:19)
[2024-05-10] MEDS: TRANDATE 200 MG PO (15:44)
[2024-05-11] MEDS: MOTRIN 600 MG PO (03:10)
[2024-05-11] MEDS: TRANDATE 400 MG PO (04:56)
--- NOTE | 2024-05-11 09:07 | CON.CAR ---
Addendum entered and electronically signed by Charlette Garcia MD 05/11/24 11:58:
I saw and examined the patient.
The Mechanical Inspector's note was reviewed and I agree with the note.
Comment: Exam is stable. Blood pressure control is fair at this time 144-150s/90s. She was started on labetalol 400 twice daily, continue. This a.m. we added nifedipine XL 30 mg daily which may take a few days to fully have effect. Discussed at
great length hypertension during and post with the patient and her at the bedside. They have a blood pressure cuff and will call the answering service if blood pressure starts increasing tomorrow. They will call with
any new symptoms. We will check on her on Monday to check blood pressure readings. In addition we will see her in the office in the next 2 weeks. They know to call if blood pressure also starts decreasing and is 100 mmHg or less or with symptoms
of dizziness. In the future we will likely be de-escalating medication.
EKG is stable. She will have an outpatient echo. Discussed with nursing in addition.
Original Note:
Consultation
Consultation Request
Date/Time Consultation Requested: 05/11/24
Date/Time Consultation Performed: 05/11/24
Requesting Provider: Dr. Short
Performing Provider: Dr. Charlette Garcia
Reason for Consultation: HTN, pre-eclampsia
Medical History
-
History of Present Illness:
Patient came to on 05/08/24 after she was noted to be HTN at her routine Ob visit on 05/11/24. Patient and report a h/o HTN that they describe as BP of 140/80 at home that resolved without specific intervention. patient reports that she
does not carry a h/o HTN as an official diagnosis and has never been recommended medications for HTN. reports that when BP is high the patient relaxes and when they recheck BP it has improved. Patient was admitted to for left
pyelonephritis requiring lithotripsy and ureteral stent 10/2023, BPs reviewed from that admission and patient was not HTN. BPs from this admission are 176/87 up to 183/114. Patient denies BECERRA on admission, but has had BECERRA intermittently post-delivery.
Patient was given magnesium rider on 05/08/24. Induction started and patient had an uneventful delivery. HTN continued post-delivery and started on labetalol 400 mg BID. BP remains elevated and cardiology consulted today. Patient was given her 1st
dose of nifedipine XL 30 mg daily about 15 minutes prior to my arrival. Labetalol was given around 0500 this morning and BP 144/94.
PMH:
h/o HTN without any previous medical therapy
Admission for left pyelonephritis, left ureteral stone and lithotripsy with stent placement 10/15/23 until 10/18/23
Past Medical History
Past Medical History: HTN
Past Surgical History: Tonsilectomy and Urological (left ureteral lithotripsy and stent 10/2023)
Social History
Tobacco: Non-Smoker
Alcohol: None
Drug: None
Personal:
Living: With Family
Family History
Family History: Hypertension
Allergies / Home Medications
Allergy/AdvReac Type Severity Reaction Status Date / Time
No Known Allergies Allergy Verified 05/08/24 15:33
�Medication �Instructions �Recorded �Confirmed �Type
prenat.vits,subhash,[id number] 1 tab PO DAILY Supplement 05/08/24 05/08/24 History
acetaminophen 325 mg tablet 650 mg (2 x 325 mg) PO Q4HPRN PRN 05/10/24 Rx
mild pain #0 tabs
ibuprofen 600 mg tablet 600 mg PO Q6HPRN PRN moderate 05/10/24 Rx
pain/cramps #45 tabs
sennosides 8.6 mg-docusate sodium 1 tab PO DAILYPRN PRN constipation 05/10/24 Rx
50 mg tablet #0 tabs
Review of Systems
-
History Source: Patient and Family ()
All other systems: Negative unless noted
Physical Exam
Vital Signs
Temp Pulse Resp BP
98.1 F 103 18 183/114
05/08/24 15:59 05/11/24 04:56 05/08/24 15:59 05/11/24 04:56
GEN: NAD, AAOx3
HEENT: EOMI, MMM
LUNGS: CTA B/L without wheeze or rales
CV: Reg, S1/S2, 1/6 syst LSB
ABD: soft, BS+, NT, ND
EXT: No clubbing, cyanosis, lesions or edema. +B/L equal radial, DP and PT pulses
NEURO: Gross non-focal
SKIN: Warm, dry and pink. No rash
Lab Results
05/09/24 05:14
05/08/24 15:22
Impression / Plan
-
PCP: None locally
Fertilizer Processing Supervisor: [facility]
Cardiology: None
Impression:
Pre-eclampsia
s/p vaginal delivery 05/08/24
h/o HTN without any previous medical therapy
Admission for left pyelonephritis, left ureteral stone and lithotripsy with stent placement 10/15/23 until 10/18/23
Plan:
-Patient came to on 05/08/24 after she was noted to be HTN at her routine Ob visit on 05/11/24. Patient and report a h/o HTN that they describe as BP of 140/80 at home that resolved without specific intervention. patient reports that she
does not carry a h/o HTN as an official diagnosis and has never been recommended medications for HTN. reports that when BP is high the patient relaxes and when they recheck BP it has improved. Patient was admitted to for left
pyelonephritis requiring lithotripsy and ureteral stent 10/2023, BPs reviewed from that admission and patient was not HTN. BPs from this admission are 176/87 up to 183/114. Patient denies BECERRA on admission, but has had BECERRA intermittently post-delivery.
Patient was given magnesium rider on 05/08/24. Induction started and patient had an uneventful delivery. HTN continued post-delivery and started on labetalol 400 mg BID. BP remains elevated and cardiology consulted today. Patient was given her 1st
dose of nifedipine XL 30 mg daily about 15 minutes prior to my arrival. Labetalol was given around 0500 this morning and BP 144/94.
-BP was 183/114 this morning, then dose of labetalol 400 mg BID given and in about 3.5 hours BP improved to 144/94. Patient is asymptomatic, denies BECERRA, vision change, SOB, CP.
-Nifedipine XL 30 mg daily ordered and first dose given at 0945, repeat BP pending.
-Patient with h/o intermittently elevated BPs at home, but no official diagnosis of HTN and has never been recommended anti-HTN meds.
-Recommend labetalol 400 mg BID and nifedipine XL 30 mg daily at time of d/c
-Check BP daily at home for the next 3 days and keep a log. Patient/ can call office on Monday to report BPs. Will see patient in the office on 05/21/24.
-As BP improves as an outpatient will wean off meds.
-Check ECG now
[2024-05-11] MEDS: PROCARDIA XL (EXTENDED RELEASE) 30 MG PO (09:40)
[2024-05-11] MEDS: PRENATAL PLUS 1 TABLET PO (09:40)
[2024-05-11] MEDS: TRANDATE PO (12:30)
== END 2024-05-11 13:30 | disposition home or self-care (01) | DRG 807 ==
LOC: LDRP 15:53
PROVIDERS: Obstetrics & Gynecology; Student in an Organized Health Care Education/Training Program; ADMITTING PHYSICIAN Obstetrics & Gynecology
PROC: 0HQ9XZZ Repair Perineum Skin, External Approach (ICD-10-PCS; 2024-05-08)
PROC: 10E0XZZ Delivery of Products of Conception, External Approach (ICD-10-PCS; 2024-05-08)
PROC: 10907ZC Drainage of Amniotic Fluid, Therapeutic from Products of Conception, Via Natural or Artificial Opening (ICD-10-PCS; 2024-05-08)
DX: O14.14 Severe pre-eclampsia complicating childbirth (principal); Z37.0 Single live birth; O99.824 Streptococcus B carrier state complicating childbirth; O70.0 First degree perineal laceration during delivery; Z3A.38 38 weeks gestation of pregnancy; O99.62 Diseases of the digestive system complicating childbirth; K21.9 Gastro-esophageal reflux disease without esophagitis; Z28.82 Immunization not carried out because of caregiver refusal
CPT/HCPCS: 88307; 80053; 82570; 83735; 84156; 85025; 85027; 86780; 86850; 86900; 86901; 93005

== ENCOUNTER → 2024-06-19 10:07 | Outpatient (REF) | payer BC, SELFPAY | LOC: RCS 10:07 | PROVIDERS: ATTENDING PHYSICIAN Physician Assistant Medical | DX: I10 Essential (primary) hypertension (principal); O14.95 Unspecified pre-eclampsia, complicating the puerperium | CPT/HCPCS: 93306 ==

== ENCOUNTER → 2024-07-19 08:55 | Outpatient (REF) | payer BC, SELFPAY | LOC: WDC 08:55 | PROVIDERS: ATTENDING PHYSICIAN Obstetrics & Gynecology | DX: N63.22 Unspecified lump in the left breast, upper inner quadrant (principal) | CPT/HCPCS: 76642 ==

== ENCOUNTER → 2024-10-14 11:50 | Outpatient (REF) | payer BC, SELFPAY | LOC: CLAB 11:50 | PROVIDERS: ATTENDING PHYSICIAN Surgery | DX: N63.20 Unspecified lump in the left breast, unspecified quadrant (principal) | CPT/HCPCS: 88173; 88305 ==

== ENCOUNTER → 2024-12-09 14:01 | Outpatient (REF) | payer BC, SELFPAY | LOC: RAD 14:01 | PROVIDERS: ATTENDING PHYSICIAN Specialist; FAMILY PHYSICIAN Family Medicine | DX: N20.0 Calculus of kidney (principal) | CPT/HCPCS: 74176 ==

== ENCOUNTER → 2024-12-18 09:11 | Outpatient (REF) | payer BC, SELFPAY | LOC: WDC 09:11 | PROVIDERS: ATTENDING PHYSICIAN Surgery; FAMILY PHYSICIAN Family Medicine | DX: N63.21 Unspecified lump in the left breast, upper outer quadrant (principal) | CPT/HCPCS: 76642; 77062; 77066 ==